=== PATIENT | male | born 1990 | race American Indian/Alaskan Native ===

== ENCOUNTER 2021-02-07 12:11 | Emergency (ER) | payer SELFPAY ==
[2021-02-07 12:22] VITALS: BP 136/82
--- NOTE | 2021-02-07 12:23 | Emergency Department Report ---
ED General Adult HPI - General Chief complaint: Medical Clearance Stated complaint: needle stick PUI?: No Time Seen by Provider: 02/07/21 12:22 Source: patient, RN notes reviewed Mode of arrival: Ambulatory Limitations: No Limitations - History of Present Illness Initial comments: The patient is a 30-year-old gentleman, who is right-hand dominant, who is not known to myself previously, who presents to the ER with a complaint of work- related needlestick injury. Patient works on an ambulance. He reports that he was poked in the right hand, on the hypothenar eminence, with a 20-gauge needle, after cannulation was attempted 3 times on a patient who was being transported from the detention. He reports there was minimal blood on the needle. He reports the needle superficially punctured his hyperthenar eminence. Please note that I am also caring for the patient in question, their medical record number is [id number]. That particular patient denies chronic medical conditions such as HIV. Mr. Florian tells me that as soon as he was punctured, he washed his hand very thoroughly with soap and water, for an adequate time. He denies additional injuries and complaints. He is curious about postexposure prophylaxis -: This afternoon Location: right, upper extremity Severity scale (0 -10): 0 Improves with: none Worsens with: none ED Review of Systems ROS: Stated complaint: NIDDLE STICK Other details as noted in HPI Comment: All other systems reviewed and negative ED Past Medical Hx - Past Medical History Previous Medical History?: No - Surgical History Past Surgical History?: No ED Physical Exam - General Limitations: No Limitations General appearance: alert, in no apparent distress - Head Head exam: Present: atraumatic, normocephalic - Eye Eye exam: Present: normal appearance, EOMI. Absent: nystagmus - ENT ENT exam: Present: normal exam, normal orophraynx, mucous membranes moist, normal external ear exam - Neck Neck exam: Present: normal inspection, full ROM. Absent: tenderness, meningismus - Respiratory Respiratory exam: Present: normal lung sounds bilaterally. Absent: respiratory distress, wheezes, rales, rhonchi, stridor - Cardiovascular Cardiovascular Exam: Present: regular rate, normal rhythm, normal heart sounds. Absent: bradycardia, tachycardia, irregular rhythm, systolic murmur, diastolic murmur, rubs, gallop - GI/Abdominal GI/Abdominal exam: Present: soft. Absent: distended, tenderness, guarding, rebound, rigid, pulsatile mass - Rectal Rectal exam: Present: deferred - Extremities Exam Extremities exam: Present: normal inspection, full ROM, other (2+ pulses noted in the bilateral upper extremities. There is a punctate lesion noted in the right hypothenar eminence. There is no redness, pus or streaking.) - Back Exam Back exam: Present: normal inspection, full ROM. Absent: tenderness, CVA tenderness (R), CVA tenderness (L), paraspinal tenderness, vertebral tenderness - Neurological Exam Neurological exam: Present: alert, oriented X3, normal gait, other (No facial droop. Tongue midline. Extraocular movements intact bilaterally. Facial sensation intact to light touch in V1, V2, V3 distribution bilaterally. 5 and a 5 strength in 4 extremities. Sensation intact to light touch in 4 extremities.). Absent: motor sensory deficit - Psychiatric Psychiatric exam: Present: normal affect, normal mood - Skin Skin exam: Present: warm, dry, intact, normal color. Absent: rash ED Course Vital Signs 02/07/21 12:21 Temperature 98.6 F Pulse Rate 84 Respiratory 18 Rate Blood Pressure 136/82 [Left] O2 Sat by Pulse 100 Oximetry ED Medical Decision Making - Lab Data Vital Signs 02/07/21 12:21 Temperature 98.6 F Pulse Rate 84 Respiratory 18 Rate Blood Pressure 136/82 [Left] O2 Sat by Pulse 100 Oximetry - Medical Decision Making Differential diagnosis, including but not limited to: Encounter for medical screening examination, needlestick injury Assessment and plan: 30-year-old gentleman, who works as a prehospital healthcare provider, who presents to the ER with a low risk needlestick injury to the right hyperthenar eminence. Patient states that there was minimal blood on the 20-gauge needle, that it did not penetrate deeply into the hand, and that he wash his hand very vigorously with soap and water, for an adequate period of time. Patient counseled that this is a low risk injury. I advised patient that while I did not think it was medically necessary, if he wanted, I would be happy to obtain screening laboratory studies on Mr. Florian, including CBC, comprehensive metabolic panel, lipase, and rapid HIV test. I advised the patient that if he were interested in laboratory studies for the purposes of starting postexposure prophylaxis, I would be happy to provide him with those services. After an extensive discussion regarding risks, benefits and alternatives, the patient and I through shared decision-making, agreed to forego laboratory testing, and postexposure prophylaxis. I think this plan of care is is reasonable. He may follow-up with his outpatient primary care physician or Worker's Compensation physician or his medical staff coordinator. He does not appear to have an emergent medical condition present at this time. Critical care attestation.: If time is entered above; I have spent that time in minutes in the direct care of this critically ill patient, excluding procedure time. ED Disposition Clinical Impression: Needle stick injury Disposition: HOME / SELF CARE / HOMELESS Is pt being admited?: No Does the pt Need Aspirin: No Condition: Good Additional Instructions: As we discussed, patient's description of needlestick injury is low risk for a transmissible blood-borne diseases. Make certain that the patient wash his hands frequently, and thoroughly after the initial needlestick injury. The patient may follow-up with an outpatient primary care doctor in the next 4 to 6 weeks for outpatient blood testing, to evaluate for blood-borne diseases, including HIV, hepatitis. New, worsened or different symptoms not present on the initial emergency room evaluation please return to the emergency room right away with new pain, worsened pain, migration of pain, projectile vomiting, change in mental status, confusion, inability to tolerate liquid feeds, Referrals: [facility] [Provider Group] - 3-5 Days
== END 2021-02-07 14:26 | disposition home or self-care (01) ==
LOC: ED 12:11
DX: S61.431A Puncture wound without foreign body of right hand, initial encounter (principal); X58.XXXA Exposure to other specified factors, initial encounter; Y08.89XA Assault by other specified means, initial encounter; Y93.89 Activity, other specified; Y92.89 Other specified places as the place of occurrence of the external cause; Y99.8 Other external cause status
CPT/HCPCS: 99282